=== PATIENT | male | born 1960 | race Caucasian/White ===

== ENCOUNTER 2022-03-28 08:44 | Day surgery (SDC) | payer BC ==
[~2022-03-28] VITALS: Ht 180.3 cm; Wt 83.0 kg
[2022-03-28] MEDS ORDERED: BUSP10TA3 PO (08:46)
[2022-03-28] MEDS ORDERED: CYAN10007 IM (08:46)
[2022-03-28] MEDS ORDERED: CYAN-34 PO (08:46)
[2022-03-28] MEDS ORDERED: MELA10TA PO (08:46)
[2022-03-28] MEDS ORDERED: MULT-1172 PO (08:51)
[2022-03-28] MEDS ORDERED: OMEP40CA21 PO (08:51)
[2022-03-28] MEDS ORDERED: MAGN300T PO (08:51)
[2022-03-28 09:36] VITALS: BP 108/65
== END 2022-03-28 13:55 | disposition left against medical advice (07) ==
LOC: SSTAY O 08:44
PROVIDERS: ATTEND Psychiatry & Neurology Neurology
DX: R40.4 Transient alteration of awareness (principal); Z53.21 Procedure and treatment not carried out due to patient leaving prior to being seen by health care provider; F41.9 Anxiety disorder, unspecified; E53.8 Deficiency of other specified B group vitamins; Z79.899 Other long term (current) drug therapy

== ENCOUNTER 2022-05-24 08:26 | Outpatient (CLI) | payer BC ==
[~2022-05-24 08:26] MED LIST: BUSP10TA3 PO; CYAN-34 PO; CYAN10007 IM; MAGN300T PO; MELATONIN10 MG PO; MULT-1172 PO; OMEP40CA21 PO
== END 2022-05-24 23:59 | disposition home or self-care (01) ==
LOC: RAD 08:26
PROVIDERS: ATTEND Psychiatry & Neurology Neurology
DX: R94.01 Abnormal electroencephalogram [EEG] (principal); R56.9 Unspecified convulsions
CPT/HCPCS: 95813